=== PATIENT | female | born 1970 | race Caucasian/White ===

== ENCOUNTER → 2023-06-27 16:59 | Outpatient (REF) | payer BC, SELFPAY | LOC: WDC 16:59 | PROVIDERS: ATTENDING PHYSICIAN Obstetrics & Gynecology Gynecology; FAMILY PHYSICIAN Family Medicine | DX: E04.1 Nontoxic single thyroid nodule (principal); Z12.31 Encounter for screening mammogram for malignant neoplasm of breast; Z01.419 Encounter for gynecological examination (general) (routine) without abnormal findings | CPT/HCPCS: 77063; 77067 ==

== ENCOUNTER → 2023-06-29 17:06 | Outpatient (REF) | payer BC, SELFPAY | LOC: RAD 17:06 | PROVIDERS: ATTENDING PHYSICIAN Obstetrics & Gynecology Gynecology; FAMILY PHYSICIAN Family Medicine | DX: E04.1 Nontoxic single thyroid nodule (principal) | CPT/HCPCS: 76536 ==

== ENCOUNTER → 2023-07-12 06:21 | Outpatient (REF) | payer BC, SELFPAY ==
[2023-07-12 12:25] VITALS: BP 167/101; BP_SYST 90
== END ==
LOC: RADI 06:21
PROVIDERS: ATTENDING PHYSICIAN Family Medicine
DX: E04.1 Nontoxic single thyroid nodule (principal)
CPT/HCPCS: 88173; 10005

== ENCOUNTER → 2023-10-04 11:33 | Outpatient (REF) | payer BC, SELFPAY | LOC: RAD 11:33 | PROVIDERS: ATTENDING PHYSICIAN Physician Assistant Medical | DX: R22.42 Localized swelling, mass and lump, left lower limb (principal) | CPT/HCPCS: 76882 ==

== ENCOUNTER → 2023-10-09 12:05 | Outpatient (REF) | payer BC, SELFPAY | LOC: RAD 12:05 | PROVIDERS: ATTENDING PHYSICIAN Physician Assistant Medical; FAMILY PHYSICIAN Family Medicine | DX: R22.41 Localized swelling, mass and lump, right lower limb (principal) | CPT/HCPCS: 73701; Q9967 ==

== ENCOUNTER → 2023-10-10 06:38 | Outpatient (REF) | payer BC, SELFPAY ==
[2023-10-10 08:06] LABS: % Basophils 1.2 % (0-2); % Eosinophils 1.2 % (0-6); % Immature Granulocytes 0.2 % (0-0.5); % Lymphocytes 29.5 % (20.5-51.1); % Monocytes 6.5 % (1.7-9.3); % Neutrophils 61.4 % (42.2-75.2); Absolute Basophils 0.1 10^3/uL (0-0.2); Absolute Eosinophils 0.1 10^3/uL (0-0.7); Absolute Lymphocytes 1.3 10^3/uL (1.2-3.4); Absolute Monocytes 0.3 10^3/uL (0.1-0.6); Absolute Neutrophils 2.6 10^3/uL (1.4-6.5); Hematocrit 43.5 % (37.0-47.0); Hemoglobin 14.8 g/dL (12.0-16.0); Mean Corpuscular Hgb 31.3 pg (27.0-31.0); Mean Platelet Volume 10.9 fL (7.4-10.4); Nucleated Red Blood Cells % 0 %; Platelet Count 223 10^3/uL (130-400); Red Blood Cell Count 4.73 10^6/uL (4.20-5.40); Red Cell Dist. Width 12.3 % (11.5-14.5); White Blood Cell Count 4.3 10^3/uL (4.8-10.8)
[2023-10-10 08:33] LABS: ALT (SGPT) 24 U/L (0-35); AST (SGOT) 27 U/L (14-36); Albumin 4.5 g/dl (3.5-5.0); Alkaline Phosphatase 77 U/L (38-126); Blood Urea Nitrogen 20 mg/dl (7-17); Carbon Dioxide 26 mmol/L (22-30); Chloride 107 mmol/L (98-107); Glucose 99 mg/dl (70-99); HDL Cholesterol 81 mg/dl; LDL Cholesterol, Calculated 122 mg/dl; Potassium 5.4 mmol/L (3.5-5.1); Sodium 141 mmol/L (135-145); Total Bilirubin 0.5 mg/dl (0.2-1.3); Total Cholesterol 215 mg/dl (50-199); Total Protein 6.7 g/dl (6.3-8.2); Triglyceride 63 mg/dl (10-149); Very Low Density Lipoprotein 12 mg/dl (0-30); eGFR > 60.00
[2023-10-10 09:03] LABS: TSH Reflex To Free T4 2.12 uIU/ml (0.47-4.68)
== END ==
LOC: REG 06:38
PROVIDERS: ATTENDING PHYSICIAN Physician Assistant Medical; FAMILY PHYSICIAN Family Medicine
DX: R22.42 Localized swelling, mass and lump, left lower limb (principal); Z13.220 Encounter for screening for lipoid disorders
CPT/HCPCS: 36415; 80053; 80061; 84443; 85025

== ENCOUNTER → 2023-10-19 13:41 | Outpatient (REF) | payer BC, SELFPAY ==
[2023-10-19 17:24] LABS: Potassium 5.1 mmol/L (3.5-5.1)
== END ==
LOC: REG 13:41
PROVIDERS: ATTENDING PHYSICIAN Physician Assistant Medical
DX: R89.9 Unspecified abnormal finding in specimens from other organs, systems and tissues (principal)
CPT/HCPCS: 36415; 84132

== ENCOUNTER 2024-01-19 06:12 | Day surgery (SDC) | payer BC, SELFPAY ==
[2024-01-08 08:18] VITALS: BMI 22.7
[2024-01-19] VITALS (9 sets, daily range): BP systolic 128–158; BP diastolic 74–92; BMI 22.7
--- NOTE | 2024-01-19 06:48 | HP.FOC2 ---
Focused History & Physical
Chief Complaint
HPI:
Chief Complaint: Left proximal medial thigh intramuscular lipoma
HPI / Indication for Planned Procedure: Patient is a 53-year-old female recently seen in outpatient surgical evaluation after she took note of a visible swelling and palpable mass in her left medial proximal thigh area. She underwent radiographic
imaging including a lower extremity ultrasound and CT identifying a 4.9 x 4.6 x 17 cm lipomatous mass within the left rectus femoris region. She presents today for surgical excision.
Relevant Past Medical History: Other (Asthma, diverticulitis, hypertension, history of thyroid nodule)
Relevant Social History: Negative
Relevant Family History: Negative
Relevant Past Surgical History: Negative
Review of Systems
Review of Pertinent Systems: All Systems Negative
Medication
See Medication form for detailed medications: Yes
Medication List (including Herbals & OTC):
lisinopril 10 mg tablet 10 mg PO DAILY 07/12/23
albuterol sulfate 90 mcg/actuation aerosol inhaler 2 puff inhalation Q6H PRN wheeze 01/08/24
ibuprofen 200 mg tablet (Advil) 400 mg PO Q6H PRN pain 01/08/24
meloxicam 15 mg tablet 15 mg PO DAILY PRN pain 01/08/24
Medications Reviewed: Yes
Allergies and Reactions
Patient has Allergies: Yes
Noted Allergies and Reactions:
Allergy/AdvReac Type Severity Reaction Status Date / Time
grass pollen Allergy ASTHMA Verified 01/08/24 10:39
levofloxacin [From Levaquin] Allergy Unknown Verified 01/18/24 12:20
mold Allergy ASTHMA Verified 01/08/24 10:39
Pertinent Physical Exam
All Other Systems: Negative
Head/Neck: Normal
Lungs: Normal
Heart: Normal
Abdomen: Normal
Extremities: Other (Left proximal medial thigh there is a firm, palpable visible lipomatous mass slight tenderness on palpation)
Neurological: Normal
Diagnosis / Assessment
53-year-old female with left lower extremity proximal thigh intramuscular lipoma
Plan / Procedure
Excision left lower extremity proximal thigh intramuscular lipoma
Anesthesia/Sedation to be done by Anesthesia Provider: Yes
--- NOTE | 2024-01-19 06:50 | W.SUR.PREOP ---
Pre-Operative Surgical Note
-
I have examined this patient prior to the performance of the scheduled procedure.
The patient's condition is unchanged from the time of the current History and
Physical and the patient is able to undergo the scheduled procedure.
[2024-01-19] MEDS: TYLENOL 1000 MG PO (07:06)
--- NOTE | 2024-01-19 08:46 | W.IMMPOSTOP ---
Addendum entered and electronically signed by Isaac Peter MD 01/19/24 08:55:
#[id number]
Original Note:
Surgical Immed Post Op Note
-
Primary Surgeon: [place]
Assisting Surgeon: Oma RODRÍGUEZ
Pre-op Diagnosis: Left rectus femoris intramuscular lipoma
Post-op Diagnosis: Left rectus femoris intramuscular lipoma; 16 cm x 5 cm
Procedure Performed: Excision left lower extremity intramuscular lipoma
Anesthesia Type: General LMA +1% lidocaine with epinephrine and 0.25% Marcaine
Specimen / Cultures: Intramuscular lipomatous mass
Estimated Blood Loss: 8 mL
Complications: None immediate
Operative Findings: Well encapsulated intramuscular lipoma within the left rectus femoris. Lipomatous mass measured approximately 16 cm x 5 cm. Excised in its entirety. Multilayer closure of fascial and subcutaneous layers.
Patient's updated postoperatively in the waiting area
== END 2024-01-19 10:30 | disposition home or self-care (01) ==
LOC: SDS 06:12
PROVIDERS: ATTENDING PHYSICIAN Surgery; FAMILY PHYSICIAN Family Medicine
DX: D17.9 Benign lipomatous neoplasm, unspecified (principal)
CPT/HCPCS: 27339; 88304; 36415; 93005; C1776

== ENCOUNTER → 2024-12-10 06:52 | Outpatient (REF) | payer BC, SELFPAY ==
[2024-12-10 07:46] LABS: Hematocrit 42.6 % (37.0-47.0); Hemoglobin 14.2 g/dL (12.0-16.0); Mean Corp Hgb Conc. 33.3 g/dL (33.0-37.0); Mean Corpuscular Volume 92.6 fL (81.0-99.0); Platelet Count 221 10^3/uL (130-400); Red Cell Dist. Width 12.2 % (11.5-14.5)
[2024-12-10 08:16] LABS: ALT (SGPT) 23 U/L (0-35); AST (SGOT) 25 U/L (14-36); Albumin 4.5 g/dl (3.5-5.0); Alkaline Phosphatase 81 U/L (38-126); Blood Urea Nitrogen 19 mg/dl (7-17); Calcium 9.9 mg/dl (8.4-10.2); Carbon Dioxide 23 mmol/L (22-30); Chloride 112 mmol/L (98-107); Glucose 95 mg/dl (70-99); HDL Cholesterol 85 mg/dl; LDL Cholesterol, Calculated 131 mg/dl; Potassium 4.4 mmol/L (3.5-5.1); Sodium 140 mmol/L (135-145); Total Protein 7.0 g/dl (6.3-8.2); Very Low Density Lipoprotein 15 mg/dl (0-30); eGFR > 60.00
== END ==
LOC: REG 06:52
PROVIDERS: ATTENDING PHYSICIAN Physician Assistant Medical; FAMILY PHYSICIAN Family Medicine
DX: Z00.00 Encounter for general adult medical examination without abnormal findings (principal); I10 Essential (primary) hypertension; J45.20 Mild intermittent asthma, uncomplicated; Z13.220 Encounter for screening for lipoid disorders
CPT/HCPCS: 36415; 80053; 80061; 84443; 85027